=== PATIENT | male | born 1965 | race Two or more races ===

== ENCOUNTER 2018-02-12 10:30 | Inpatient (IN) ==
[2018-02-12] MEDS ORDERED: Lidocaine 1%/Epinephrine 1:100,000 Inj 20 ML Vial ONE (10:46)
[2018-02-12] MEDS ORDERED: Chlorhexidine Gluconate 2% 1 Pack (2 Cloths) TOPICAL SCH (12:00)
[2018-02-12] MEDS ORDERED: Glycopyrrolate Inj 1 MG/5 ML Syringe IV.PUSH ONE (12:00)
[2018-02-12] MEDS ORDERED: Normosol-R pH 7.4 Inj 2,000 ML IV.CONT ONE (12:00)
[2018-02-12] MEDS ORDERED: Lidocaine PF 1% Inj 5 ML Syringe INFILTRATN ONE (12:00)
[2018-02-12] MEDS ORDERED: Sodium Chlor 0.9% Inj 500 ML IV.SIG SCH (12:00)
[2018-02-12] MEDS ORDERED: Phenylephrine/NS 1000 MCG/10ML Syringe IV.PUSH ONE (12:00)
[2018-02-12] MEDS ORDERED: Metoprolol Tartrate 25 MG Tablet PO SCH (12:00)
[2018-02-12 12:55] LABS: INR 1.1 Ratio; Prothrombin Time 11.3 sec (9.8-11.6)
[2018-02-12] MEDS ORDERED: ceFAZolin 2 GM Premix Inj 2 GM/50 ML PIGGYBACK IV.SIG SCH (13:00)
[2018-02-12] MEDS ORDERED: Sugammadex Inj 200 MG/2 ML Vial IV.PUSH ONE ×2 (14:16)
[2018-02-12] MEDS ORDERED: fentaNYL Citrate Inj 100 MCG/2 ML Ampul ONE ×2 (17:05→18:32)
[2018-02-12] MEDS ORDERED: Famotidine PF Inj 20 MG/2 ML Vial ONE (17:21)
[2018-02-12] MEDS ORDERED: Morphine Inj 4 MG/ML Vial IV.PUSH PRN (17:51)
[2018-02-12] MEDS ORDERED: Sodium Chlor 0.9% Inj 1,000 ML IV.SIG SCH ×2 (18:00→21:00)
[2018-02-12 18:58] LABS: Baso # (Auto) 0.1 th/mm3 (0.0-0.2); Baso % (Auto) 0.3 % (0.0-2.0); Hematocrit 35.9 % (39.0-51.0); Hemoglobin 11.5 gm/dL (13.0-17.0); Lymph # (Auto) 1.3 th/mm3 (1.0-4.8); Mean Corpuscular HGB Conc 32.2 % (32.0-36.0); Mean Corpuscular Hemoglobin 26.3 pg (27.0-34.0); Mean Corpuscular Volume 81.7 fL (80.0-100.0); Mean Platelet Volume 10.1 fL (7.0-11.0); Mono % (Auto) 5.5 % (0.0-8.0); Neut # (Auto) 16.4 th/mm3 (1.8-7.7); Neut % (Auto) 87.2 % (16.0-70.0); Platelet Count 187 th/mm3 (150-450); Red Blood Count 4.39 mil/mm3 (4.50-5.90); Red Cell Distribution Width 12.7 % (11.6-17.2); White Blood Count 18.9 th/mm3 (4.0-11.0)
[2018-02-12] MEDS: Ketorolac Inj 30 MG/ML (IVP) Vial IV.PUSH PRN (19:12)
[2018-02-12] MEDS: Pantoprazole Inj 40 MG Vial IV.PUSH SCH (19:21)
[2018-02-12 19:38] LABS: Calcium 8.1 mg/dL (8.5-10.1); Potassium 3.7 meq/L (3.5-5.1)
--- NOTE | 2018-02-12 20:09 | ECG ---
Date Performed: 02/12/2018 Time Performed: 11:44:16 PTAGE: 52 years EKG: Sinus rhythm MODERATE INTRAVENTRICULAR CONDUCTION DELAY BORDERLINE ECG NO PREVIOUS TRACING DOCTOR: Angelita Saenz Interpretating Date/Time 02/12/2018 20:09:20
[2018-02-12] MEDS: Glimepiride 4 MG Tablet PO SCH (21:58)
[2018-02-12] MEDS: Fenofibrate 145 MG Tablet PO SCH (21:58)
[2018-02-12] MEDS: Docusate Sodium 100 MG Capsule PO SCH (21:59)
[2018-02-12] MEDS: clonazePAM 0.5 MG Tablet PO SCH (21:59)
[2018-02-12] MEDS: amLODIPine 10 MG Tablet PO SCH (21:59)
[2018-02-12] MEDS: Insulin NovoLOG Aspart Correctional Sugar Inj SQ SCH (22:05)
[2018-02-13] MEDS: Insulin NovoLOG Aspart Correctional Sugar Inj SQ SCH ×4 (08:58→21:55)
[2018-02-13] MEDS: Docusate Sodium 100 MG Capsule PO SCH ×2 (08:59→21:53)
[2018-02-13 09:06] LABS: Hematocrit 33.8 % (39.0-51.0); Hemoglobin 11.2 gm/dL (13.0-17.0); Mean Corpuscular HGB Conc 33.1 % (32.0-36.0); Mean Corpuscular Hemoglobin 26.9 pg (27.0-34.0); Mean Corpuscular Volume 81.5 fL (80.0-100.0); Mean Platelet Volume 10.7 fL (7.0-11.0); Platelet Count 167 th/mm3 (150-450); Red Blood Count 4.15 mil/mm3 (4.50-5.90); Red Cell Distribution Width 12.7 % (11.6-17.2); White Blood Count 11.3 th/mm3 (4.0-11.0)
[2018-02-13 09:39] LABS: Calcium 8.6 mg/dL (8.5-10.1); Carbon Dioxide 22.5 meq/L (21.0-32.0); Potassium 3.6 meq/L (3.5-5.1)
--- NOTE | 2018-02-13 10:35 | MP ---
cc: Carlos Richardson MD DATE OF OPERATION: 02/12/2018 PREOPERATIVE DIAGNOSES: 1. Intermediate risk, [place] 4+3=7 prostate cancer, 5/12 cores. 2. Diabetes. POSTOPERATIVE DIAGNOSES: 1. Intermediate risk, [place] 4+3=7 prostate cancer, 5/12 cores. 2. Diabetes. PROCEDURE PERFORMED: Robotic-assisted laparoscopic radical prostatectomy with bilateral pelvic lymph node dissection. SURGEON: Carlos Richardson MD SADDLE AND SIDE WIRE STITCHER: Ken Marinelli MD ANESTHESIA: General. COMPLICATIONS: None. ANTIBIOTICS: Ancef 2 grams IV. DRAINS: 1. A 20-[place]izen [place] Haile catheter to gravity drainage. 2. UGO drain to bulb suction. ESTIMATED BLOOD LOSS: 150 mL FLUIDS: 2 liters crystalloids. SPECIMENS: 1. Prostate and seminal vesicles. 2. Right pelvic lymph node. 3. Left pelvic lymph nodes. DISPOSITION: Stable to recovery. INDICATIONS/SIGNIFICANT HISTORY: The patient is a 52-year-old male with history of diabetes. He was found to have elevated PSA. The patient underwent a standard transrectal ultrasound with prostate biopsy and was found 5/12 cores positive for [place] 3+4=7 prostate adenocarcinoma. He had a metastatic workup which was negative. He was then referred for robotic prostatectomy. He underwent a prostate MRI preoperatively and was found to have 2 significant lesions, that is PI-RADS 5 lesion in his left apex and a PI-RADS 4 lesion in the right peripheral gland, but no evidence of extracapsular extension, but there was suggestion of invasion into the seminal vesicle. After treatment options were discussed, he elected to proceed with robotic-assisted laparoscopic prostatectomy. After risks, benefits, alternatives were explained to the patient including the risk of erectile dysfunction, urinary incontinence and need for adjuvant therapy, the patient elected to proceed. Informed consent was obtained. DETAILS OF PROCEDURE: The patient was properly identified and brought back to the operating room, was laid supine on the table. Proper timeout was performed under the direction of Anesthesiology, the patient was intubated and induced under general anesthetic. Preoperative antibiotics in the form of Ancef 2 grams IV were given one hour prior to the start of the procedure. The patient was then placed in steep and dorsal lithotomy position and steep Trendelenburg. All pressure points were padded. He was then prepped and draped in normal sterile surgical fashion. A 16-[place]izen [place] Haile catheter was placed on the field sterilely. Clear urine returned. At this time, stab incision was made to the right side and superior to the umbilicus of the patient. Veress needle was then used to gain access to the abdominal cavity. Insufflation was then achieved. A 12 mm long camera port was then carefully placed into the abdomen without difficulty. A laparoscopic 0-degree lens was then inserted into the abdominal cavity and was carefully inspected. There was no evidence of abdominal injury or bleeding was seen. There appeared to be some adhesions from the sigmoid colon stuck to the anterior abdominal wall, suspected from possibly diverticulosis in the past. At this point, the remaining ports were all placed under direct visualization, including three 8 mm robotic ports, and 5 and 12 mm technical assistant ports, which were on the patient's right side. The robot was then brought into position. I began by taking down the adhesions of the sigmoid colon to the anterior abdominal wall. Once the adhesions were taken down, this did open up his pelvic fossa. The bladder was then taken down in a standard fashion to expose the space of Retzius. Once the bladder was taken down, the periprostatic fat was then removed. The superficial dorsal vein complex was then ligated with Bovie electrocautery. Once all the periprostatic fat was removed, I then entered the endopelvic fascia on the right side and carried up towards the apex. This was done with both blunt dissection and electrocautery. He had several aberrant veins which were divided with electrocautery as well. dissection was done on the patient's left side. Again, I entered the endopelvic fascia sharply and bluntly dissected off the pelvic musculature up to the apex of the prostate. The puboprostatic ligaments were taken on each side. At this time, this exposed the dorsal vein complex. A 2-0 loop Stratafix was then used to ligate this vein and was used as a through the pubic symphysis. At this point, the bladder neck appeared to be easily identifiable, as there was minimal fat around the bladder neck. I then created the bladder neck anteriorly down until the Haile catheter was seen. The Haile catheter was then retracted anteriorly up to against the pubic symphysis. This exposed the posterior bladder neck. There was no median lobe. Both ureters were identified and appeared quite a distance from the posterior bladder neck dissection. I then divided the posterior bladder neck until the seminal vesicles were seen. The seminal vesicles were then carefully dissected out each one. The vas was divided on each side and the seminal vesicles were dissected on each side, all the way to the tip. The patient had significantly long seminal vesicles, which extended quite posteriorly along the posterior Denonvilliers fascia. Once the seminal vessels were dissected, I then entered the posterior Denonvilliers sharply. I then developed a plane between the prostate and the rectum posteriorly and to thin out the pedicles on each side. Due to the patient's extent of the disease, I did a wide dissection on each side and used the robotic vessel sealer to divide each pedicle all the way towards the apex of the prostate. Once the rectum was completely freed posteriorly, I then turned my attention anteriorly. I divided the dorsal vein complex with electrocautery. I got to the urethra. The urethra was then divided with cold cut scissors. The posterior portion of the urethra as well as the rectourethralis was carefully divided and the prostate was completely freed. This was placed in the right colic gutter for later removal. The pelvis was then irrigated copiously. There were several small bleeding vessels which were cauterized. At this time, my technical assistant, Dr. Marinelli placed his finger in the rectum to check for the integrity of the rectal wall. It appeared to be intact. At this point, I then did a lymph node dissection on each side. Starting on the right side, I easily identified the iliac vein and the pelvic side wall. The tissue was carefully divided off until the obturator nerve was seen. All the tissue along the obturator was then removed and sent off to the pathologist as right pelvic lymph nodes. The obturator nerve remained intact. Similar dissection was done on the left side, however, he did not have as much tissue on the left side, but the obturator nerve was easily identified. The lymph node tissue surrounding the obturator nerve was carefully peeled off and sent off to pathology as well as level left pelvic lymph nodes. The left obturator nerve remained intact. Of note, a clip was placed across the right pelvic lymph node to help prevent a lymphocele. At this time, the vesicourethral anastomosis was then performed with a double armed 2-0 Stratafix, this was performed in a watertight fashion. The catheter was directly seen entering the bladder, it was then irrigated. No leak was seen. It was then tied down and 20 mL was then placed in the Haile catheter balloon and secured. The catheter was irrigated and irrigated clear yellow urine. At this time, 3 grams of Eugenie was then placed for hemostatic purposes. The prostate was then placed in EndoCatch bag for later removal. The third arm containing the ProGrasp was then removed. A 10-[place]izen [place] UGO drain was placed through the third arm and secured to the skin. At this point, all of the ports were removed. The prostate was extracted through the midline incision after extending the incision. It was closed with a running 0 Vicryl. All skin incisions were then closed with 4-0 Monocryl. Sponge, needle and instrument counts were correct at the end of the case. This concluded the procedure. The patient was extubated and sent to recovery room in stable condition, to be transferred to floor for routine postoperative care. MD ALDAIR Conner/OBDULIO , 06:08 PM , 07:11 PM
--- NOTE | 2018-02-13 12:45 | P.PNURO ---
Subjective Patient symptoms today: Pt was seen at bedside. doing well post surgery yesterday. Pain controlled, no f /c/n/v, Labs are stable. No UGO Cr done yet. No BM or flatus yet. Moore is in place, urine is clear yellow. Objective Vital Signs: Vital Signs 02/12/18 18:23 02/12/18 18:30 02/12/18 18:45 Temperature 97.8 F Pulse Rate 89 85 89 Respiratory Rate 20 22 21 Blood Pressure 120/59 L 118/61 114/60 Pulse Oximetry 99 98 97 02/12/18 19:00 02/12/18 19:12 02/12/18 19:15 Temperature Pulse Rate 85 84 Respiratory Rate 20 19 Blood Pressure 116/59 L 119/58 L Pulse Oximetry 97 99 99 02/12/18 19:30 02/12/18 19:45 02/12/18 20:28 Temperature 98 F 97.4 F L Pulse Rate 80 86 84 Respiratory Rate 19 18 16 Blood Pressure 122/61 121/60 109/61 Pulse Oximetry 99 99 98 02/12/18 23:02 02/13/18 00:09 02/13/18 00:14 Temperature 98.3 F Pulse Rate 97 H Respiratory Rate 18 18 16 Blood Pressure 134/72 Pulse Oximetry 97 02/13/18 03:48 02/13/18 04:04 02/13/18 04:29 Temperature 98.5 F Pulse Rate 104 H Respiratory Rate 18 18 18 Blood Pressure 111/64 Pulse Oximetry 96 02/13/18 08:00 02/13/18 11:37 Temperature 97.2 F L Pulse Rate 91 H Respiratory Rate 18 Blood Pressure 103/57 L Pulse Oximetry 98 98 Intake & Output 02/12/18 02/13/18 02/13/18 18:59 06:59 18:59 Intake Total 3150 / 3150 1100 / 1100 100 / 100 Output Total 150 / 150 1285 / 1285 Balance 3000 / 3000 -185 / -185 100 / 100 Weight 81 kg 81 kg Intake: IV 1050 / 1050 1100 / 1100 100 / 100 LR 1000 mL Inj 1,000 ML @ 30 1000 / 1000 mls/hr IV.SIG .Q24H [facility] Rx#: [id number] NS Inj 1,000 ML @ 125 mls/hr IV 1000 / 1000 .SIG .Q10H [facility] Rx#:[id number] Ancef 2 GM Premix Inj 2 gm In 50 / 50 50 ml @ 100 mls/hr IV.SIG NUCLEAR WASTE MANAGEMENT ENGINEER [facility] Rx#:[id number] Ancef Inj 1,000 MG In NS Inj 100 / 100 100 / 100 100 ML @ 200 mls/hr IV.SIG Q8H [facility] Rx#:[id number] Anesthesia Amount 2100 / 2100 Output: Urine 1000 / 1000 Estimated Blood Loss 150 / 150 Wound Drainage 285 / 285 # 1 Left Abdomen UGO Drain 285 / 285 Other: Weight On Admission 81 kg Result Diagrams: 02/13/18 07:06 02/13/18 07:06 Medications and IVs: Active Medications Generic Name Dose Route Start Last Admin Trade Name Freq PRN Reason Stop Dose Admin Amlodipine Besylate 10 mg 02/12/18 21:00 02/12/18 21:59 Norvasc PO 10 mg HS [facility] Administration Chlorhexidine Gluconate 3 pack 02/12/18 12:00 02/12/18 11:30 Chlorhexidine 2% Cloth TOPICAL 02/15/18 11:52 3 pack NUCLEAR WASTE MANAGEMENT ENGINEER [facility] Administration Clonazepam 0.5 mg 02/12/18 21:00 02/12/18 21:59 Klonopin PO 0.5 mg HS [facility] Administration Docusate Sodium 100 mg 02/12/18 21:00 02/13/18 08:59 Colace PO 100 mg BID [facility] Administration Fenofibrate 145 mg 02/12/18 21:00 02/12/18 21:58 Tricor PO 145 mg HS [facility] Administration Glimepiride 4 mg 02/12/18 21:00 02/12/18 21:58 Amaryl PO 4 mg HS [facility] Administration Lactated Ringer's 1,000 mls @ 30 mls/hr 02/12/18 12:00 02/13/18 11:49 Lr 1000 Ml Inj IV.SIG 02/15/18 11:52 Not Given .Q24H [facility] Sodium Chloride 500 mls @ 30 mls/hr 02/12/18 12:00 Ns Inj IV.SIG 02/15/18 11:52 .Q10H [facility] Cefazolin Sodium/Dextrose 2 gm in 50 mls @ 100 mls/hr 02/12/18 13:00 13:10 Ancef 2 Gm Premix Inj IV.SIG 02/15/18 12:59 Infused NUCLEAR WASTE MANAGEMENT ENGINEER [facility] Infusion Sodium Chloride 1,000 mls @ 75 mls/hr 02/12/18 21:00 Ns Inj IV.SIG .Q10H [facility] Cefazolin Sodium 1,000 mg/ 100 mls @ 200 mls/hr 02/13/18 01:00 02/13/18 10:32 Sodium Chloride IV.SIG 02/13/18 17:29 Infused Q8H [facility] Infusion Insulin Aspart 0 unit 02/12/18 21:00 02/13/18 11:49 Novolog Insulin Correctional Sugar Inj SQ 14 unit ACHS [facility] Administration Protocol Ketorolac Tromethamine 30 mg 02/12/18 17:50 02/12/18 19:12 Toradol Inj IV.PUSH 02/16/18 17:49 30 mg Q6H PRN Administration PAIN SCALE 7 TO 10 SEVERE Losartan Potassium 100 mg 02/12/18 21:00 02/12/18 21:58 Cozaar PO 100 mg HS [facility] Administration Metformin HCl 1,000 mg 02/12/18 21:00 02/13/18 08:59 Glucophage PO 1,000 mg BID [facility] Administration Metoprolol Tartrate 25 mg 02/12/18 12:00 Lopressor PO 02/15/18 11:52 NUCLEAR WASTE MANAGEMENT ENGINEER [facility] Miscellaneous Information 1 each 02/12/18 18:25 Misc Nursing Information OTHER 02/13/18 18:24 UNSCH PRN SEE LABEL COMMENTS Morphine Sulfate 4 mg 02/12/18 17:51 02/12/18 23:00 Morphine Inj IV.PUSH 4 mg Q4H PRN Administration BREAKTHROUGH PAIN Ondansetron HCl 4 mg 02/12/18 17:52 Zofran Odt SL Q6H PRN NAUSEA OR VOMITING Oxycodone/Acetaminophen 2 tab 02/12/18 17:49 02/13/18 02:29 Percocet 5/325 Mg PO 2 tab Q4H PRN Administration PAIN SCALE 7 TO 10 SEVERE Pantoprazole Sodium 40 mg 02/12/18 18:00 02/12/18 19:21 Protonix Inj IV.PUSH 40 mg Q24H [facility] Administration Povidone Iodine 1 applicatio 02/12/18 12:00 02/12/18 12:15 Betadine 5% Antisepsis Kit EACH NARE 02/15/18 11:52 1 applicatio NUCLEAR WASTE MANAGEMENT ENGINE[facility] Administration Objective Remarks: NAD RRR Lungs are clear Abd NT slightly distended No CVAT, Bladder is not distended. Moore and UGO drain are in place Assessment and Plan - Plan POD #1 s/p RALRP and LN dissection yesterday - Continue current management - Pain control prn - UGO Cr to be sent - LAbs tomorrow AM - Use IS if in bed - OOP and ambulate - Regular diet - Keep moore catheter - Possibly d/c home tomorrow Discussed Condition With: Dr Dylan POWERS attending
[2018-02-13] MEDS: Pantoprazole Inj 40 MG Vial IV.PUSH SCH (17:04)
[2018-02-13] MEDS: amLODIPine 10 MG Tablet PO SCH (21:52)
[2018-02-13] MEDS: Glimepiride 4 MG Tablet PO SCH (21:52)
[2018-02-13] MEDS: Fenofibrate 145 MG Tablet PO SCH (21:52)
[2018-02-13] MEDS: clonazePAM 0.5 MG Tablet PO SCH (21:53)
[2018-02-14 04:51] LABS: Baso # (Auto) 0.1 th/mm3 (0.0-0.2); Baso % (Auto) 0.6 % (0.0-2.0); Eos # (Auto) 0.1 th/mm3 (0.0-0.4); Eos % (Auto) 0.8 % (0.0-4.0); Hematocrit 32.7 % (39.0-51.0); Hemoglobin 10.8 gm/dL (13.0-17.0); Lymph # (Auto) 2.3 th/mm3 (1.0-4.8); Lymph % (Auto) 23.6 % (9.0-44.0); Mean Corpuscular HGB Conc 32.9 % (32.0-36.0); Mean Corpuscular Hemoglobin 27.2 pg (27.0-34.0); Mean Corpuscular Volume 82.5 fL (80.0-100.0); Mean Platelet Volume 9.9 fL (7.0-11.0); Mono # (Auto) 0.7 th/mm3 (0.0-0.9); Neut # (Auto) 6.5 th/mm3 (1.8-7.7); Platelet Count 161 th/mm3 (150-450); Red Blood Count 3.96 mil/mm3 (4.50-5.90); Red Cell Distribution Width 12.5 % (11.6-17.2); White Blood Count 9.5 th/mm3 (4.0-11.0)
[2018-02-14 05:08] LABS: Anion Gap 4 meq/L (5-15); Blood Urea Nitrogen 10 mg/dL (7-18); Calcium 8.2 mg/dL (8.5-10.1); Carbon Dioxide 30.4 meq/L (21.0-32.0); Chloride 108 meq/L (98-107); Glomerular Filtration Rate Greater Than 89 mL/min (>89); Glucose,Random 133 mg/dL (74-106); Potassium 3.4 meq/L (3.5-5.1); Sodium 142 meq/L (136-145)
[2018-02-14] MEDS: Insulin NovoLOG Aspart Correctional Sugar Inj SQ SCH ×2 (08:41→12:38)
[2018-02-14] MEDS: Docusate Sodium 100 MG Capsule PO SCH (08:41)
[2018-02-14] MEDS: Ketorolac Inj 30 MG/ML (IVP) Vial IV.PUSH PRN (09:37)
--- NOTE | 2018-02-14 11:23 | P.DCO ---
- Home Health Nursing Order: Haile catheter maintenance - Home Health Aide Order: To assist in: Bathing and personal care, polymerization oven tender and meal prep - Case Management Consult Yes - Certification I have seen patient Sam Farias on 02/14/18. My clinical findings support the need for the requested home health care services because: Deconditioned with increased weakness I certify that my clinical findings support that this patient is homebound because: Post-op weakness
--- NOTE | 2018-02-14 14:18 | P.PNURO ---
Subjective Patient symptoms today: Pt was seen at the bedside this afternoon. No new c/o UGO Cr is normal, UGO drain was removed this AM. Has mild abd soreness, no f/c/n/v, Ambulated without issues, no hematuria. Moore is in place. Tolerates regular diet well. + flatus, no BM yet. LAbs are stable Objective Vital Signs: Vital Signs 02/13/18 16:00 02/13/18 20:00 02/14/18 00:00 Temperature 98.5 F 98.3 F 98.2 F Pulse Rate 84 73 78 Respiratory Rate 14 18 18 Blood Pressure 119/67 129/74 123/65 Pulse Oximetry 93 L 96 92 L 02/14/18 08:00 02/14/18 10:10 02/14/18 12:00 Temperature 99.2 F 98.9 F Pulse Rate 79 83 Respiratory Rate 14 20 18 Blood Pressure 121/72 127/69 Pulse Oximetry 94 L 95 Intake & Output 02/13/18 02/14/18 02/14/18 18:59 06:59 18:59 Intake Total 1800 / 1800 Output Total 1050 / 1050 2530 / 2530 Balance 750 / 750 -2530 / -2530 Intake: IV 200 / 200 Ancef Inj 1,000 MG In NS Inj 200 / 200 100 ML @ 200 mls/hr IV.SIG Q8H [facility] Rx#:[id number] Oral 1600 / 1600 Output: Urine 800 / 800 0 / 0 Urine Amount (Catheter) 2500 / 2500 URE 2500 / 2500 Wound Drainage 250 / 250 30 / 30 # 1 Left Abdomen UGO Drain 250 / 250 30 / 30 Other: Date of Last Bowel Movement 02/11/18 Result Diagrams: 02/14/18 04:32 02/14/18 04:32 Medications and IVs: Active Medications Generic Name Dose Route Start Last Admin Trade Name Freq PRN Reason Stop Dose Admin Amlodipine Besylate 10 mg 02/12/18 21:00 02/13/18 21:52 Norvasc PO 10 mg HS [facility] Administration Chlorhexidine Gluconate 3 pack 02/12/18 12:00 02/12/18 11:30 Chlorhexidine 2% Cloth TOPICAL 02/15/18 11:52 3 pack DENTAL ASSISTANT TEACHER [facility] Administration Clonazepam 0.5 mg 02/12/18 21:00 02/13/18 21:53 Klonopin PO 0.5 mg HS [facility] Administration Docusate Sodium 100 mg 02/12/18 21:00 02/14/18 08:41 Colace PO 100 mg BID [facility] Administration Fenofibrate 145 mg 02/12/18 21:00 02/13/18 21:52 Tricor PO 145 mg HS [facility] Administration Glimepiride 4 mg 02/12/18 21:00 02/13/18 21:52 Amaryl PO 4 mg HS [facility] Administration Lactated Ringer's 1,000 mls @ 30 mls/hr 02/12/18 12:00 02/14/18 11:23 Lr 1000 Ml Inj IV.SIG 02/15/18 11:52 Not Given .Q24H [facility] Sodium Chloride 500 mls @ 30 mls/hr 02/12/18 12:00 Ns Inj IV.SIG 02/15/18 11:52 .Q10H [facility] Cefazolin Sodium/Dextrose 2 gm in 50 mls @ 100 mls/hr 02/12/18 13:00 13:10 Ancef 2 Gm Premix Inj IV.SIG 02/15/18 12:59 Infused DENTAL ASSISTANT TEACHER [facility] Infusion Insulin Aspart 0 unit 02/12/18 21:00 02/14/18 12:38 Novolog Insulin Correctional Sugar Inj SQ Not Given [facility] Protocol Ketorolac Tromethamine 30 mg 02/12/18 17:50 02/14/18 09:37 Toradol Inj IV.PUSH 02/16/18 17:49 30 mg Q6H PRN Administration PAIN SCALE 7 TO 10 SEVERE Losartan Potassium 100 mg 02/12/18 21:00 02/13/18 21:52 Cozaar PO 100 mg HS [facility] Administration Metformin HCl 1,000 mg 02/12/18 21:00 02/14/18 08:41 Glucophage PO 1,000 mg BID [facility] Administration Metoprolol Tartrate 25 mg 02/12/18 12:00 Lopressor PO 02/15/18 11:52 DENTAL ASSISTANT TEACHER [facility] Ondansetron HCl 4 mg 02/12/18 17:52 Zofran Odt SL Q6H PRN NAUSEA OR VOMITING Oxycodone/Acetaminophen 2 tab 02/12/18 17:49 02/13/18 16:27 Percocet 5/325 Mg PO 2 tab Q4H PRN Administration PAIN SCALE 7 TO 10 SEVERE Pantoprazole Sodium 40 mg 02/12/18 18:00 02/13/18 17:04 Protonix Inj IV.PUSH 40 mg Q24H [facility] Administration Povidone Iodine 1 applicatio 02/12/18 12:00 02/12/18 12:15 Betadine 5% Antisepsis Kit EACH NARE 02/15/18 11:52 1 applicatio DENTAL ASSISTANT TEACHER [facility] Administration Objective Remarks: NAD RRR Lungs are clear Abd NT, soft, slightly distended No CVAT, Bladder is not distended. Moore is in place Assessment and Plan - Plan POD #2 s/p RALRP and LN dissection yesterday - Continue current management - pain management as needed - OOB to ambulate - Keep moore in - D/c home this afternoon
== END 2018-02-14 16:16 | disposition home health service (06) ==
LOC: HSDI 10:30 → N07 19:52
PROVIDERS: ADMIT Urology; ATTEND Urology